=== PATIENT | female | born 1975 | race Caucasian/White ===

== ENCOUNTER → 2022-05-06 09:59 | Outpatient (CLI) | payer OTHER, MEDICAID, SELFPAY ==
[2022-05-06 11:54] LABS: Influenza A - CEPHEID Flu A NEGATIVE (NEGATIVE); Influenza B - CEPHEID Flu B NEGATIVE (NEGATIVE); Respiratory Syncytial Virus Negative (Negative)
[2022-05-06 11:55] LABS: COVID-19 CEPHEID 4-PLEX PCR POSITIVE (Negative)
== END ==
PROVIDERS: PCP Family Medicine; Visit Provider Nurse Practitioner Family
DX: R53.83 Other fatigue (principal)
CPT/HCPCS: 0241U

== ENCOUNTER → 2022-05-06 10:03 | Outpatient (CLI) | payer OTHER, MEDICAID, SELFPAY ==
--- NOTE | 2022-05-06 10:06 | DI.RAD.S_ITS ---
PROCEDURE: XR CHEST 1V INDICATIONS: Chest pain TECHNIQUE: One view of the chest was acquired. COMPARISON: None. FINDINGS: Surgical changes and devices: None. Lungs and pleura: Lungs are clear. No pleural effusions or pneumothorax. Mediastinum: Mediastinal contours appear normal. Heart size is normal. Bones and chest wall: No suspicious bony lesions. Overlying soft tissues appear unremarkable. IMPRESSION: No acute cardiopulmonary abnormalities or focal airspace disease. Dictated by: Kleber Moore M.D. on 05/06/2022 at 18:00 Approved by: Kleber Moore M.D. on 05/06/2022 at 18:00
== END ==
PROVIDERS: PCP Family Medicine; Referring Provider Nurse Practitioner Family; Visit Provider Nurse Practitioner Family
DX: R53.83 Other fatigue; M25.519 Pain in unspecified shoulder; R07.9 Chest pain, unspecified
CPT/HCPCS: 0241U; 71045

== ENCOUNTER 2024-02-18 22:50 | Emergency (ER) | payer SELFPAY ==
[2024-02-18 22:56] VITALS: BP 153/68; PULSE 70; RESP 18; TEMP 36.5; O2SAT 99; BMI 26.5
--- NOTE | 2024-02-18 23:45 | ED.ABDPAIN ---
HPI - Abdominal Pain General Chief Complaint: Abdominal Pain Stated Complaint: rt abd/rib pain, sharp Time Seen by Provider: 02/18/24 23:26 Source: patient Mode of arrival: Ambulatory History of Present Illness HPI narrative: 48-year-old female presents for right-sided upper and lower abdominal pain that began earlier this afternoon. Patient states that it initially felt like ?a Charley horse? on her side, however the longer it remained the more concerned she became. She states that she was never had any pain like this before. Denies nausea, vomiting, constipation, diarrhea, other complaints at this time. No medications taken prior to arrival. Related Data Allergies Allergy/AdvReac Type Severity Reaction Status Date / Time No Known Drug Allergies Allergy Unverified 08/11/23 08:03 Patient History Social History Smoking Status: Never smoker Smoking Status: Never smoker Substance Use Type: does not use Exam Initial Vital Signs Initial Vital Signs: Vital Signs Temperature 97.7 F 02/18/24 22:56 Pulse Rate 70 02/18/24 22:56 Respiratory Rate 18 02/18/24 22:56 Blood Pressure 153/68 H 02/18/24 22:56 Pulse Oximetry 99 02/18/24 22:56 Oxygen Delivery Method Room Air 02/18/24 22:56 Const: Awake, alert, no acute distress, nontoxic appearing Cardiac: regular rate, regular rhythm RESP: unlabored, clear bilaterally, no wheezing GI: Soft, right upper and lower quadrant tenderness to palpation without rebound or guarding Skin: Warm, Dry, intact, no rashes Neuro: AO x3, CN II-XII grossly intact, moves all extremities Course Orders Ordered: Discontinued Medications Ketorolac Tromethamine (Ketorolac 30 Mg/Ml Vial) 15 mg IV NOW ONE Stop: 02/18/24 23:44 Last Admin: 02/18/24 23:48 Dose: 15 mg Documented By: Vital Signs Vital signs: Vital Signs - 8 hr 02/18/24 22:56 Temperature 97.7 F Pulse Rate 70 Respiratory Rate 18 Blood Pressure 153/68 H Pulse Oximetry 99 Oxygen Delivery Method Room Air MDM - Abdominal Pain Differential Diagnosis Differential diagnosis: Likely abdominal pain, acute appendicitis and calculus of kidney Lab Data 02/18/24 23:50 02/18/24 23:50 Labs: Lab Results 02/18/24 Range/Units 23:50 WBC 6.7 (4.5-11.0) X10^3/uL RBC 4.00 (4.0-5.2) X10^6/uL Hgb 10.1 L (12.0-16.0) g/dL Hct 31.2 L (36-46) % MCV 77.9 L (80-100) fL MCH 25.3 L (26-34) PG MCHC 32.5 (30-36) % RDW 17.4 H (11.6-14.8) % Plt Count 294 (150-400) X10^3/uL Neut % (Auto) 80.5 H (50-75) % Lymph % (Auto) 12.9 L (25-40) % [place] % (Auto) 5.5 (3-14) % Eos % (Auto) 0.4 L (2-4) % Baso % (Auto) 0.7 (0-2) % Neut # (Auto) 5400 (4518-4802) /uL Lymph # (Auto) 900 L (0067-9994) /uL [place] # (Auto) 400 (0-900) /uL Eos # (Auto) 0 (0-450) /uL Baso # (Auto) 0 (0-100) /uL Sodium 135 L (137-145) mmol/L Potassium 3.5 (3.4-5.1) mmol/L Chloride 106 (98-107) mmol/L Carbon Dioxide 23 (22-32) mmol/L BUN 9 (7-17) mg/dL Creatinine 0.53 (0.52-1.04) mg/dL Estimated GFR > 60 (>60) mL/min BUN/Creatinine Ratio 17.0 (6-22) Glucose 98 (70-100) mg/dL Lactate 0.6 L (0.7-2.1) mmol/L Calcium 9.6 (8.4-10.2) mg/dL Total Bilirubin 0.5 (0.2-1.3) mg/dL AST 33 (14-36) IU/L ALT 20 (<35) IU/L Alkaline Phosphatase 53 (38-126) U/L Total Protein 7.3 (6.3-8.2) g/dL Albumin 4.4 (3.5-5.0) g/dL Globulin 2.9 (1.7-4.1) g/dL Albumin/Globulin Ratio 1.5 (1.0-2.8) Point of care testing: Point of Care Testing Test Results Negative Urine Dip Bedside Urine Glucose Negative Bedside Urine Bilirubin - Negative Bedside Urine Ketone - Negative Urine Specific [place] 1.005 Bedside Urine Occult Blood - Negative Bedside Urine pH 6.0 Bedside Urine Protein - Negative Bedside Urine Urobilinogen - Negative Bedside Urine Nitrite - Negative Bedside Urine Leukocytes - Negative Esterase Imaging Data CT scan - abdomen/pelvis: Radiologist's Impression: PROCEDURE: CT ABDOMEN PELVIS W CON INDICATIONS: RLQ abd pain TECHNIQUE: After the administration of intravenous contrast, axial sections acquired from the lung bases to the pubic symphysis. Coronal and sagittal reformats were performed. For radiation dose reduction, the following was used: automated exposure control, adjustment of mA and/or kV according to patient size. COMPARISON: None. FINDINGS: Image quality: Diagnostic. Lower Chest: No significant findings. ABDOMEN: Liver: No solid mass. Liver is mildly enlarged, measuring up to 19.5 cm in craniocaudal dimension. Gallbladder: No radiopaque gallstones or wall thickening. Biliary ducts: No biliary dilation. Pancreas: No ductal dilation. Spleen: Size is within normal limits. Adrenal Glands: No adrenal nodules. Kidneys and Ureters: No hydronephrosis. No solid mass. No complex renal cystic lesion which requires follow up. Stomach and Bowel: Visualized portions of the appendix appear normal. Small bowel loops and stomach are unremarkable. Peritoneum: No abnormal intraperitoneal fluid. No free air. Ventral Wall: Small fat containing periumbilical hernia. Abdominal Nodes: No retroperitoneal or mesenteric adenopathy by size criteria. Vessels: Aorta and inferior vena cava are normal in size. PELVIS: Pelvic Organs: Reflux of contrast material is seen into the gonadal veins, which can be seen in setting of pelvic congestion syndrome. Mildly prominent endometrial stripe measures up to 11 mm in thickness, likely physiologic. Bladder: No bladder wall thickening, accounting for underdistention. Pelvic Nodes: No enlarged lymph nodes. Miscellaneous: No inguinal hernias are seen. Bones: No aggressive osseous abnormality. Mild degenerative changes in the lower lumbar spine. IMPRESSION: 1. No acute abnormality identified in the abdomen or pelvis. Normal appendix. 2. Hepatomegaly. 3. Reflux of contrast material into the gonadal veins is nonspecific but can be seen with pelvic congestion syndrome. Approved by: Mau Rendon M.D. on 02/19/2024 at 0:39 MDM Narrative Medical decision making narrative: Well-appearing patient with right-sided upper and lower abdominal pain. Abdomen is soft, she does have reproducible tenderness on the right-hand side. Laboratory work negative for acute findings. CT imaging negative for acute findings. Mild hepatomegaly noted. Patient informed of all lab and imaging findings. Recommended Tylenol and ibuprofen as needed for symptoms. PCP follow up advised. Discharge Plan Departure Patient Disposition: Home Clinical Impression: Right sided abdominal pain Instructions: DI for Abdominal Pain-Adult Activity Restrictions/Additional Instructions: Your laboratory work today showed very mild anemia, however it was otherwise normal. Your CT showed a slightly large liver, but no blockage or infection. Take Tylenol and ibuprofen at home for pain as needed. Please make sure that you follow up with a primary care doctor. Referrals: Nubia Hayes ARNP [Primary Care Provider] - Stand Alone Forms: Patient Portal/API/Survey
[2024-02-18] MEDS: KETOROLAC 30 MG/ML VIAL 15 MG IV (23:48)
[2024-02-18 23:57] LABS: Add Manual Diff / Slide Review NO; Basophils Absolute Auto 0 /uL (0-100); Basophils Percent Auto 0.7 % (0-2); Eosinophils Absolute Auto 0 /uL (0-450); Eosinophils Percent Auto 0.4 % (2-4); Hematocrit 31.2 % (36-46); Hemoglobin 10.1 g/dL (12.0-16.0); Lymphocytes Absolute Auto 900 /uL (1100-4500); Lymphocytes Percent Auto 12.9 % (25-40); Mean Corpuscular HGB Conc 32.5 % (30-36); Mean Corpuscular Hemoglobin 25.3 PG (26-34); Mean Corpuscular Volume 77.9 fL (80-100); Monocytes Absolute Auto 400 /uL (0-900); Monocytes Percent Auto 5.5 % (3-14); Neutrophils Absolute Auto 5400 /uL (1500-7000); Neutrophils Percent Auto 80.5 % (50-75); Platelet Count 294 X10^3/uL (150-400); Red Cell Distribution Width 17.4 % (11.6-14.8); White Blood Cell Count 6.7 X10^3/uL (4.5-11.0)
[2024-02-19 00:08] LABS: Alanine Aminotransferase 20 IU/L (<35); Albumin 4.4 g/dL (3.5-5.0); Albumin Globulin Ratio 1.5 (1.0-2.8); Alkaline Phosphatase 53 U/L (38-126); Aspartate Aminotransferase 33 IU/L (14-36); Bilirubin Total 0.5 mg/dL (0.2-1.3); Blood Urea Nitrogen 9 mg/dL (7-17); Calcium 9.6 mg/dL (8.4-10.2); Carbon Dioxide 23 mmol/L (22-32); Chloride 106 mmol/L (98-107); Estimated Glomerular Filt Rate > 60 mL/min (>60); Globulin 2.9 g/dL (1.7-4.1); Glucose 98 mg/dL (70-100); HEMOLYSIS < 15 (0-50); Potassium 3.5 mmol/L (3.4-5.1); Sodium 135 mmol/L (137-145); Total Protein 7.3 g/dL (6.3-8.2)
[2024-02-19 00:09] LABS: Lactate (Lactic Acid) 0.6 mmol/L (0.7-2.1)
[2024-02-19 00:54] VITALS: BP 130/62; PULSE 60; RESP 18; O2SAT 98
== END 2024-02-19 01:01 | disposition home or self-care (01) ==
PROVIDERS: Emergency Provider Emergency Medicine; PCP Nurse Practitioner
DX: R10.11 Right upper quadrant pain (principal); R10.31 Right lower quadrant pain
CPT/HCPCS: 36415; 74177; 80053; 81003; 81025; 83605; 85025; 96374; 99284; J1885; Q9967

== ENCOUNTER 2024-07-21 11:29 | Emergency (ER) | payer SELFPAY ==
[2024-07-21] VITALS (11 sets, daily range): BP systolic 127–147; BP diastolic 58–81; PULSE 59–74; RESP 16–23; TEMP 36.6–36.8; O2SAT 92–100; BMI 28.3
--- NOTE | 2024-07-21 11:48 | ED.GENADULT ---
HPI - General Adult General Chief complaint: Dizziness Stated complaint: Dizzy, vomiting , head pressure , blurred vision Time Seen by Provider: 07/21/24 11:48 Source: patient Mode of arrival: Ambulatory History of Present Illness HPI narrative: 41-year-old female presenting for multiple complaints. She states that since Friday, proximally week ago she has been having intermittent dizziness, hot flashes, nausea and vomiting, headache, states that these symptoms have been ongoing and persistent therefore did have a balance test done on at [facility] in [facility] which she states was normal. But due to persistent dizziness was instructed come into the ED. she states that she did have a remote history of Lyme disease in 2019 in which she was treated with doxycycline and is wondering/worried that this might be the case again. She denies any chest pain shortness breath fever chills abdominal pain or any other GI/ symptoms at this time Related Data Previous Rx's Medication Instructions Recorded meclizine 25 mg tablet 25 mg PO DAILY PRN dizziness or 07/21/24 vertigo 1 week #7 tabs ondansetron 4 mg disintegrating 4 mg PO Q8H PRN nausea and 07/21/24 tablet vomiting 5 days #15 tabs prednisone 20 mg tablet 20 mg PO DAILY 5 days #5 tabs 07/21/24 Allergies Allergy/AdvReac Type Severity Reaction Status Date / Time No Known Drug Allergies Allergy Unverified 08/11/23 08:03 Review of Systems Review of Systems Narrative: General: Denies fever, chills, weight loss HEENT: Positive headache, eye drainage, eye irritation, head trauma, sore throat, voice change Cardiovascular: Denies any chest pain, palpitations, tachycardia Respiratory: Denies any shortness of breath, cough, wheeze, stridor GI/: Positive nausea and vomiting Denies any abdominal pain, diarrhea, bright red blood per rectum, melanotic stools, urinary frequency, urinary retention, dysuria, hematuria MSK: Denies any joint pain, muscle pains, swelling Skin: Denies any rashes, lesions, discoloration Neuro: Positive lightheadedness, dizziness Denies any headache, fainting, weakness Psych: Denies SI/HI Patient History Social History Smoking Status: Never smoker Smoking Status: Never smoker Exam Narrative Exam Narrative: General: Cooperative, well-developed, not in acute distress HEENT: Normocephalic, atraumatic, PERRLA, normal sclera, eyelids normal Neck: Active full range of motion, atraumatic Chest: Normal to inspection, negative crepitus, no overlying erythema ecchymosis Respiratory: Normal respiratory effort, not in acute respiratory distress, clear to auscultation bilaterally negative cough, wheeze, tachypnea, rhonchi, rales Cardiology: Regular rate rhythm negative gallop, murmur, rubs GI/: No tenderness to palpation, soft, non rigid, normal to inspection, exam deferred MSK: Full active range of motion in all 4 extremities, atraumatic, no tenderness to palpation of any bony prominences Skin: No rashes or lesions noted Neuro: NIH of 0, no focal deficits Alert awake oriented x3, moves all 4 extremities spontaneously, cranial nerves intact, able to answer all questions appropriately follows commands appropriately Psych: Cooperative, negative suicidal or homicidal ideations Initial Vital Signs Initial Vital Signs: Vital Signs Temperature 98.2 F 07/21/24 11:37 Pulse Rate 74 07/21/24 11:37 Respiratory Rate 16 07/21/24 11:37 Blood Pressure 141/67 H 07/21/24 11:37 Pulse Oximetry 100 07/21/24 11:37 Oxygen Delivery Method Room Air 07/21/24 11:37 Course Orders Ordered: ED Orders 07/21/24 12:00 Complete Blood Count AUTO DIFF Stat Comprehensive Metabolic Panel Stat MAG [Magnesium] Stat Troponin I Stat 07/21/24 12:02 CT head/brain wo con Stat XR chest 1V Stat EKG-12 Lead Stat 07/21/24 12:03 CT angio head and neck Stat 07/21/24 12:28 Covid-19 + FLU A/B + RSV - PCR Stat Discontinued Medications Dexamethasone (Dexamethasone 10 Mg/Ml Vial) 10 mg IV NOW ONE Stop: 07/21/24 12:04 Last Admin: 07/21/24 12:14 Dose: 10 mg Documented By: NITZA Diphenhydramine HCl (Diphenhydramine 50 Mg/Ml Vial) 25 mg IV NOW ONE Stop: 07/21/24 12:02 Last Admin: 07/21/24 12:14 Dose: 25 mg Documented By: NITZA Sodium Chloride (Normal Saline 0.9%) 1,000 mls @ 1,000 mls/hr IV BOLUS ONE Stop: 07/21/24 13:00 Last Admin: 07/21/24 12:13 Dose: 1,000 mls/hr Documented By: NITZA Metoclopramide HCl (Metoclopramide 10 Mg/2 Ml Inj) 10 mg IV NOW ONE Stop: 07/21/24 12:04 Last Admin: 07/21/24 12:14 Dose: 10 mg Documented By: NITZA Vital Signs Vital signs: Vital Signs - 8 hr 07/21/24 11:37 07/21/24 11:49 07/21/24 11:50 Temperature 98.2 F Pulse Rate 74 66 Respiratory Rate 16 Blood Pressure 141/67 H Pulse Oximetry 100 95 100 Oxygen Delivery Method Room Air 07/21/24 11:50 07/21/24 12:00 07/21/24 12:01 Temperature Pulse Rate 73 73 Respiratory Rate 20 Blood Pressure 134/64 Pulse Oximetry 100 100 Oxygen Delivery Method 07/21/24 12:01 07/21/24 12:30 07/21/24 12:32 Temperature Pulse Rate 63 66 Respiratory Rate 23 Blood Pressure 147/81 H Pulse Oximetry 100 100 Oxygen Delivery Method 07/21/24 12:32 07/21/24 13:02 07/21/24 13:04 Temperature Pulse Rate 60 59 L Respiratory Rate 22 Blood Pressure 139/58 L Pulse Oximetry 92 100 Oxygen Delivery Method 07/21/24 13:04 Temperature Pulse Rate Respiratory Rate Blood Pressure 130/58 L Pulse Oximetry Oxygen Delivery Method Medical Decision Making Differential Diagnosis Differential Diagnosis: Intracranial hemorrhage, CVA, ACS, electrolyte abnormality, pneumonia Lab Data 07/21/24 12:00 07/21/24 12:00 Labs: Lab Results 07/21/24 07/21/24 07/21/24 Range/Units 12:00 12:00 12:00 WBC 6.5 (4.5-11.0) X10^3/uL RBC 4.32 (4.0-5.2) X10^6/uL Hgb 11.3 L (12.0-16.0) g/dL Hct 34.8 L (36-46) % MCV 80.5 (80-100) fL MCH 26.2 (26-34) PG MCHC 32.6 (30-36) % RDW 16.3 H (11.6-14.8) % Plt Count 297 (150-400) X10^3/uL Neut % (Auto) 76.4 H (50-75) % Lymph % (Auto) 18.1 L (25-40) % [place] % (Auto) 4.4 (3-14) % Eos % (Auto) 0.5 L (2-4) % Baso % (Auto) 0.6 (0-2) % Neut # (Auto) 5000 (4171-1225) /uL Lymph # (Auto) 1200 (3447-6438) /uL [place] # (Auto) 300 (0-900) /uL Eos # (Auto) 0 (0-450) /uL Baso # (Auto) 0 (0-100) /uL Sodium 138 Cancelled (137-145) mmol/L Potassium 3.9 Cancelled (3.4-5.1) mmol/L Chloride 106 (98-107) mmol/L Carbon Dioxide (22-32) mmol/L BUN (7-17) mg/dL Creatinine (0.52-1.04) mg/dL Estimated GFR (>60) mL/min BUN/Creatinine Ratio (6-22) Glucose (70-100) mg/dL Calcium (8.4-10.2) mg/dL Magnesium (1.6-2.3) mg/dL Total Bilirubin (0.2-1.3) mg/dL AST (14-36) IU/L ALT (<35) IU/L Alkaline Phosphatase (38-126) U/L Troponin I (0.01-0.034) ng/mL Total Protein (6.3-8.2) g/dL Albumin (3.5-5.0) g/dL Globulin (1.7-4.1) g/dL Albumin/Globulin Ratio (1.0-2.8) SARS-CoV-2 (PCR) (Negative) Influenza A (RT-PCR) (NEGATIVE) Influenza B (RT-PCR) (NEGATIVE) RSV (PCR) (Negative) 07/21/24 07/21/24 07/21/24 Range/Units 12:00 12:00 12:00 WBC (4.5-11.0) X10^3/uL RBC (4.0-5.2) X10^6/uL Hgb (12.0-16.0) g/dL Hct (36-46) % MCV (80-100) fL MCH (26-34) PG MCHC (30-36) % RDW (11.6-14.8) % Plt Count (150-400) X10^3/uL Neut % (Auto) (50-75) % Lymph % (Auto) (25-40) % [place] % (Auto) (3-14) % Eos % (Auto) (2-4) % Baso % (Auto) (0-2) % Neut # (Auto) (9353-1956) /uL Lymph # (Auto) (8078-1737) /uL [place] # (Auto) (0-900) /uL Eos # (Auto) (0-450) /uL Baso # (Auto) (0-100) /uL Sodium (137-145) mmol/L Potassium (3.4-5.1) mmol/L Chloride Cancelled (98-107) mmol/L Carbon Dioxide 25 Cancelled (22-32) mmol/L BUN 11 Cancelled (7-17) mg/dL Creatinine 0.55 (0.52-1.04) mg/dL Estimated GFR (>60) mL/min BUN/Creatinine Ratio (6-22) Glucose (70-100) mg/dL Calcium (8.4-10.2) mg/dL Magnesium (1.6-2.3) mg/dL Total Bilirubin (0.2-1.3) mg/dL AST (14-36) IU/L ALT (<35) IU/L Alkaline Phosphatase (38-126) U/L Troponin I (0.01-0.034) ng/mL Total Protein (6.3-8.2) g/dL Albumin (3.5-5.0) g/dL Globulin (1.7-4.1) g/dL Albumin/Globulin Ratio (1.0-2.8) SARS-CoV-2 (PCR) (Negative) Influenza A (RT-PCR) (NEGATIVE) Influenza B (RT-PCR) (NEGATIVE) RSV (PCR) (Negative) 07/21/24 07/21/24 07/21/24 Range/Units 12:00 12:00 12:00 WBC (4.5-11.0) X10^3/uL RBC (4.0-5.2) X10^6/uL Hgb (12.0-16.0) g/dL Hct (36-46) % MCV (80-100) fL MCH (26-34) PG MCHC (30-36) % RDW (11.6-14.8) % Plt Count (150-400) X10^3/uL Neut % (Auto) (50-75) % Lymph % (Auto) (25-40) % [place] % (Auto) (3-14) % Eos % (Auto) (2-4) % Baso % (Auto) (0-2) % Neut # (Auto) (5333-7807) /uL Lymph # (Auto) (1556-9634) /uL [place] # (Auto) (0-900) /uL Eos # (Auto) (0-450) /uL Baso # (Auto) (0-100) /uL Sodium (137-145) mmol/L Potassium (3.4-5.1) mmol/L Chloride (98-107) mmol/L Carbon Dioxide (22-32) mmol/L BUN (7-17) mg/dL Creatinine Cancelled (0.52-1.04) mg/dL Estimated GFR > 60 Cancelled (>60) mL/min BUN/Creatinine Ratio 20.0 Cancelled (6-22) Glucose 103 H (70-100) mg/dL Calcium (8.4-10.2) mg/dL Magnesium (1.6-2.3) mg/dL Total Bilirubin (0.2-1.3) mg/dL AST (14-36) IU/L ALT (<35) IU/L Alkaline Phosphatase (38-126) U/L Troponin I (0.01-0.034) ng/mL Total Protein (6.3-8.2) g/dL Albumin (3.5-5.0) g/dL Globulin (1.7-4.1) g/dL Albumin/Globulin Ratio (1.0-2.8) SARS-CoV-2 (PCR) (Negative) Influenza A (RT-PCR) (NEGATIVE) Influenza B (RT-PCR) (NEGATIVE) RSV (PCR) (Negative) 07/21/24 07/21/24 07/21/24 Range/Units 12:00 12:00 12:28 WBC (4.5-11.0) X10^3/uL RBC (4.0-5.2) X10^6/uL Hgb (12.0-16.0) g/dL Hct (36-46) % MCV (80-100) fL MCH (26-34) PG MCHC (30-36) % RDW (11.6-14.8) % Plt Count (150-400) X10^3/uL Neut % (Auto) (50-75) % Lymph % (Auto) (25-40) % [place] % (Auto) (3-14) % Eos % (Auto) (2-4) % Baso % (Auto) (0-2) % Neut # (Auto) (1681-1272) /uL Lymph # (Auto) (0550-0855) /uL [place] # (Auto) (0-900) /uL Eos # (Auto) (0-450) /uL Baso # (Auto) (0-100) /uL Sodium (137-145) mmol/L Potassium (3.4-5.1) mmol/L Chloride (98-107) mmol/L Carbon Dioxide (22-32) mmol/L BUN (7-17) mg/dL Creatinine (0.52-1.04) mg/dL Estimated GFR (>60) mL/min BUN/Creatinine Ratio (6-22) Glucose Cancelled (70-100) mg/dL Calcium 9.7 Cancelled (8.4-10.2) mg/dL Magnesium 2.1 (1.6-2.3) mg/dL Total Bilirubin 0.4 (0.2-1.3) mg/dL AST 25 (14-36) IU/L ALT 18 (<35) IU/L Alkaline Phosphatase 68 (38-126) U/L Troponin I < 0.012 (0.01-0.034) ng/mL Total Protein 7.7 (6.3-8.2) g/dL Albumin 5.0 (3.5-5.0) g/dL Globulin 2.7 (1.7-4.1) g/dL Albumin/Globulin Ratio 1.9 (1.0-2.8) SARS-CoV-2 (PCR) Negative (Negative) Influenza A (RT-PCR) Flu a negative (NEGATIVE) Influenza B (RT-PCR) Flu b negative (NEGATIVE) RSV (PCR) Negative (Negative) Point of Care Testing Test Results Negative Urine Dip Bedside Urine Glucose Negative Bedside Urine Bilirubin - Negative Bedside Urine Ketone - Negative Urine Specific [place] 1.005 Bedside Urine Occult Blood - Negative Bedside Urine pH 7.5 Bedside Urine Protein - Negative Bedside Urine Urobilinogen - Negative Bedside Urine Nitrite - Negative Bedside Urine Leukocytes - Negative Esterase Point of care testing: Point of Care Testing Test Results Negative Urine Dip Bedside Urine Glucose Negative Bedside Urine Bilirubin - Negative Bedside Urine Ketone - Negative Urine Specific [place] 1.005 Bedside Urine Occult Blood - Negative Bedside Urine pH 7.5 Bedside Urine Protein - Negative Bedside Urine Urobilinogen - Negative Bedside Urine Nitrite - Negative Bedside Urine Leukocytes - Negative Esterase Imaging Data Chest x-ray: Radiologist's Impression: [address] [address] XRay Report Signed Patient: Nina Jones MR#: [id number] : 1975 Acct:[id number] Age/Sex: 49 / F Date of Service: 07/21/24 Loc: ED Accession Number: [id number] Procedure: XR chest 1V Ordering Provider: Michael Vora D.O. PROCEDURE: XR CHEST 1V INDICATIONS: light headed, dizzy TECHNIQUE: One view of the chest was acquired. COMPARISON: [facility], , XR CHEST 1V, 05/06/2022, 10:15. FINDINGS: Surgical changes and devices: None. Lungs and pleura: Lungs are clear. No pleural effusions or pneumothorax. Mediastinum: Mediastinal contours appear normal. Heart size is normal. Bones and chest wall: No suspicious bony lesions. Overlying soft tissues appear unremarkable. IMPRESSION: No acute pulmonary process. CT scan - head: Radiologist's Impression: [address] [address] [address] Scan Report Signed Patient: Nina Jones MR#: [id number] : 1975 Acct:[id number] Age/Sex: 49 / F Date of Service: 07/21/24 Loc: ED Accession Number: [id number] Procedure: CT head/brain wo con Ordering Provider: Michael Vora D.O. PROCEDURE: CT HEAD/BRAIN WO CON INDICATIONS: light headed/dizzy TECHNIQUE: Noncontrast 4.5 mm thick angled axial sections acquired from the foramen magnum to the vertex, with coronal and sagittal reformats. For radiation dose reduction, the following was used: automated exposure control, adjustment of mA and/or kV according to patient size. COMPARISON: None. FINDINGS: Image quality: Diagnostic. CSF spaces: Basal cisterns are patent. No extra-axial fluid collections. Ventricles are normal in size and shape. Brain: No midline shift. No intracranial masses or hemorrhage. Cta-white matter interface is normal. Skull and face: Calvarium and visualized facial bones are intact, without suspicious lesions. Sinuses: Visualized sinuses and mastoids are clear. IMPRESSION: No acute intracranial pathology. CTA - brain/neck: Radiologist's Impression: [place] [address] CT Scan Report Signed Patient: Nina Jones MR#: [id number] : 1975 Acct:[id number] Age/Sex: 49 / F Date of Service: 07/21/24 Loc: ED Accession Number: [id number] Procedure: CT angio head and neck Ordering Provider: Michael Vora D.O. PROCEDURE: CT ANGIO HEAD AND NECK INDICATIONS: light headed / dizzy TECHNIQUE: After the administration of intravenous contrast, 1 mm thick sections acquired from the aortic arch through the [place] of [place]. 3-dimensional bfdvmod-gyladblgc-liixhqftmm (MIP) and/or volume rendering reformats were acquired of the central intracranial vasculature and neck separately. For radiation dose reduction, the following was used: automated exposure control, adjustment of mA and/or kV according to patient size. COMPARISON: [facility], CT, CT HEAD/BRAIN WO CON, 07/21/2024, 12:45. FINDINGS: Image quality: Diagnostic. BRAIN: See separately dictated CT head report of 07/21/2024. HEAD CT ANGIOGRAPHY: Anterior circulation: Intracranial internal carotid arteries are normal in size and flow. The flow within the paired anterior cerebral arteries is normal and symmetric. The flow within the middle cerebral arteries is normal and symmetric. The anterior communicating artery is seen. No aneurysms are seen. Posterior circulation: Visualized portions of the vertebral arteries demonstrate normal caliber, and join to form a normal appearing basilar artery. Flow within the posterior cerebral arteries is normal and symmetric. No aneurysms are seen. NECK CT ANGIOGRAPHY: Carotid system: The great vessels demonstrate a conventional anatomy as they arise from the aortic arch. The origins of the common carotid arteries appear patent. The common carotid arteries demonstrate normal caliber and courses. The bifurcation regions are both widely patent. The internal carotid arteries demonstrate normal calibers and courses. Posterior circulation: The origins of the vertebral arteries both appear widely patent. The more superior extracranial portions of both vertebral arteries also demonstrate normal courses and calibers. They join to form a normal appearing basilar artery. Soft tissues: Visualized neck soft tissues demonstrate no suspicious abnormalities. Bones: No suspicious bony lesions. Visualized cervical spine appears normally aligned. IMPRESSION: No significant intracranial arterial abnormality is seen. No significant abnormality is seen within the arteries of the neck. MDM Narrative Medical decision making narrative: 49-year-old female presenting for multiple complaints. Stating that she has been having worsening headache, lightheadedness, dizziness, nausea and vomiting and decreased hearing loss. She states that her symptoms have always been constant since 2019 when she was diagnosed Lyme disease. She states that she was treated with doxycycline for this, she states that her symptoms are worse with motion. She states that last week she did go to a hearing and balance expert and was told today that her results were completely normal but due to persistent since symptoms was instructed come into the ED for further evaluation treatment. Patient stating no recent travel, no known exposure to ticks. No rashes. On exam patient without any focal deficits NIH of 0. Patient had lab work EKG and imaging performed here in the emergency department. Lab work without any acute abnormalities, troponin negative, respiratory panel negative, CT head without any acute intracranial abnormalities, CTA angio head and neck without any acute intracranial abnormalities, chest x-ray without any acute cardiopulmonary abnormalities. Patient was given Reglan Benadryl Decadron for her symptoms, she states that she had improved symptoms after administration of these medications here. Patient will be discharged home with Zofran, prednisone, meclizine for symptomatic relief. Patient was instructed to follow up with her primary care doctor and her ENT in an outpatient setting she verbalized understanding of this and agrees to being discharged home with outpatient follow up Discharge Plan Departure Patient Disposition: Home Clinical Impression: Dizziness Instructions: DI for Vertigo Activity Restrictions/Additional Instructions: Please follow up with your primary care doctor Please read the discharge instructions sheet carefully and bring all papers to all doctor follow-up visits, as it may contain information that your doctor may want to see. Disease processes change and evolve, if your symptoms worsen or if you develop any new symptoms that are concerning to you please return for evaluation. Your evaluation today does not show any evidence of any life-threatening/serious illnesses requiring admission to the hospital or surgery. Please follow-up with your doctor for re-evaluation in approximately 1 day. Seek immediate medical attention for any worrisome symptoms. *If you do not have a primary care provider please contact the [facility] Resource line at [phone]. They will ask some questions about your medical history and help get you set up with a doctor in the community. Prescriptions: New prednisone 20 mg tablet 20 mg PO DAILY 5 Days Qty: 5 0RF ondansetron 4 mg tablet,disintegrating 4 mg PO Q8H PRN (Reason: nausea and vomiting) 5 Days Qty: 15 0RF meclizine 25 mg tablet 25 mg PO DAILY PRN (Reason: dizziness or vertigo) 7 Days Qty: 7 0RF Referrals: Nubia Hayes ARNP [Primary Care Provider] - Stand Alone Forms: Patient Portal/API/Survey
--- NOTE | 2024-07-21 12:02 | DI.CT.S_ITS ---
PROCEDURE: CT HEAD/BRAIN WO CON INDICATIONS: light headed/dizzy TECHNIQUE: Noncontrast 4.5 mm thick angled axial sections acquired from the foramen magnum to the vertex, with coronal and sagittal reformats. For radiation dose reduction, the following was used: automated exposure control, adjustment of mA and/or kV according to patient size. COMPARISON: None. FINDINGS: Image quality: Diagnostic. CSF spaces: Basal cisterns are patent. No extra-axial fluid collections. Ventricles are normal in size and shape. Brain: No midline shift. No intracranial masses or hemorrhage. Cat-white matter interface is normal. Skull and face: Calvarium and visualized facial bones are intact, without suspicious lesions. Sinuses: Visualized sinuses and mastoids are clear. IMPRESSION: No acute intracranial pathology. Dictated by: Myrna Puckett M.D. on 07/21/2024 at 12:51 Approved by: Myrna Puckett M.D. on 07/21/2024 at 12:52
--- NOTE | 2024-07-21 12:02 | DI.RAD.S_ITS ---
PROCEDURE: XR CHEST 1V INDICATIONS: light headed, dizzy TECHNIQUE: One view of the chest was acquired. COMPARISON: M[facility]ed [facility], CR, XR CHEST 1V, 05/06/2022, 10:15. FINDINGS: Surgical changes and devices: None. Lungs and pleura: Lungs are clear. No pleural effusions or pneumothorax. Mediastinum: Mediastinal contours appear normal. Heart size is normal. Bones and chest wall: No suspicious bony lesions. Overlying soft tissues appear unremarkable. IMPRESSION: No acute pulmonary process. Dictated by: Myrna Puckett M.D. on 07/21/2024 at 12:22 Approved by: Myrna Puckett M.D. on 07/21/2024 at 12:22
--- NOTE | 2024-07-21 12:02 | EKG_ITS ---
[address] [address] Test Date: 2024-07-21 Pat Name: Nina Jones Department: 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
--- NOTE | 2024-07-21 12:03 | DI.CT.S_ITS ---
PROCEDURE: CT ANGIO HEAD AND NECK INDICATIONS: light headed / dizzy TECHNIQUE: After the administration of intravenous contrast, 1 mm thick sections acquired from the aortic arch through the [place] of [place]. 3-dimensional dsbrsdp-vvvpqejmy-ujzblymkel (MIP) and/or volume rendering reformats were acquired of the central intracranial vasculature and neck separately. For radiation dose reduction, the following was used: automated exposure control, adjustment of mA and/or kV according to patient size. COMPARISON: [facility], CT, CT HEAD/BRAIN WO [facility], 07/21/2024, 12:45. FINDINGS: Image quality: Diagnostic. BRAIN: See separately dictated CT head report of 07/21/2024. HEAD CT ANGIOGRAPHY: Anterior circulation: Intracranial internal carotid arteries are normal in size and flow. The flow within the paired anterior cerebral arteries is normal and symmetric. The flow within the middle cerebral arteries is normal and symmetric. The anterior communicating artery is seen. No aneurysms are seen. Posterior circulation: Visualized portions of the vertebral arteries demonstrate normal caliber, and join to form a normal appearing basilar artery. Flow within the posterior cerebral arteries is normal and symmetric. No aneurysms are seen. NECK CT ANGIOGRAPHY: Carotid system: The great vessels demonstrate a conventional anatomy as they arise from the aortic arch. The origins of the common carotid arteries appear patent. The common carotid arteries demonstrate normal caliber and courses. The bifurcation regions are both widely patent. The internal carotid arteries demonstrate normal calibers and courses. Posterior circulation: The origins of the vertebral arteries both appear widely patent. The more superior extracranial portions of both vertebral arteries also demonstrate normal courses and calibers. They join to form a normal appearing basilar artery. Soft tissues: Visualized neck soft tissues demonstrate no suspicious abnormalities. Bones: No suspicious bony lesions. Visualized cervical spine appears normally aligned. IMPRESSION: No significant intracranial arterial abnormality is seen. No significant abnormality is seen within the arteries of the neck. Any quantitative measurements of stenosis were performed using NASCET criteria. Dictated by: Myrna Puckett M.D. on 07/21/2024 at 13:02 Approved by: Myrna Puckett M.D. on 07/21/2024 at 13:25
[2024-07-21] MEDS: SODIUM CHLORIDE 0.9% 1,000 ML 1000 ML IV (12:13)
[2024-07-21] MEDS: METOCLOPRAMIDE 10 MG/2 ML INJ IV (12:14)
[2024-07-21] MEDS: DEXAMETHASONE 10 MG/ML VIAL IV (12:14)
[2024-07-21] MEDS: diphenhydrAMINE 50 MG/ML VIAL 25 MG IV (12:14)
[2024-07-21 12:19] LABS: Add Manual Diff / Slide Review NO; Basophils Absolute Auto 0 /uL (0-100); Basophils Percent Auto 0.6 % (0-2); Eosinophils Absolute Auto 0 /uL (0-450); Eosinophils Percent Auto 0.5 % (2-4); Hematocrit 34.8 % (36-46); Hemoglobin 11.3 g/dL (12.0-16.0); Lymphocytes Absolute Auto 1200 /uL (1100-4500); Lymphocytes Percent Auto 18.1 % (25-40); Mean Corpuscular HGB Conc 32.6 % (30-36); Mean Corpuscular Hemoglobin 26.2 PG (26-34); Mean Corpuscular Volume 80.5 fL (80-100); Monocytes Absolute Auto 300 /uL (0-900); Monocytes Percent Auto 4.4 % (3-14); Neutrophils Absolute Auto 5000 /uL (1500-7000); Neutrophils Percent Auto 76.4 % (50-75); Platelet Count 297 X10^3/uL (150-400); Red Blood Cell Count 4.32 X10^6/uL (4.0-5.2); Red Cell Distribution Width 16.3 % (11.6-14.8); White Blood Cell Count 6.5 X10^3/uL (4.5-11.0)
[2024-07-21 12:32] LABS: Alanine Aminotransferase 18 IU/L (<35); Albumin Globulin Ratio 1.9 (1.0-2.8); Alkaline Phosphatase 68 U/L (38-126); Aspartate Aminotransferase 25 IU/L (14-36); Bilirubin Total 0.4 mg/dL (0.2-1.3); Blood Urea Nitrogen 11 mg/dL (7-17); Calcium 9.7 mg/dL (8.4-10.2); Carbon Dioxide 25 mmol/L (22-32); Chloride 106 mmol/L (98-107); Estimated Glomerular Filt Rate > 60 mL/min (>60); Globulin 2.7 g/dL (1.7-4.1); Glucose 103 mg/dL (70-100); HEMOLYSIS < 15 (0-50); Potassium 3.9 mmol/L (3.4-5.1); Sodium 138 mmol/L (137-145); Total Protein 7.7 g/dL (6.3-8.2)
[2024-07-21 12:33] LABS: Magnesium 2.1 mg/dL (1.6-2.3)
[2024-07-21 12:44] LABS: Troponin I < 0.012 ng/mL (0.01-0.034)
[2024-07-21 13:10] LABS: Influenza A - CEPHEID Flu A NEGATIVE (NEGATIVE); Influenza B - CEPHEID Flu B NEGATIVE (NEGATIVE); Respiratory Syncytial Virus Negative (Negative)
[2024-07-21 13:11] LABS: COVID-19 CEPHEID 4-PLEX PCR Negative (Negative)
== END 2024-07-21 14:00 | disposition home or self-care (01) ==
PROVIDERS: Emergency Provider Student in an Organized Health Care Education/Training Program; PCP Nurse Practitioner
DX: R42 Dizziness and giddiness (principal); R11.2 Nausea with vomiting, unspecified; R51.9 Headache, unspecified; H91.90 Unspecified hearing loss, unspecified ear; R29.700 NIHSS score 0
CPT/HCPCS: 0241U; 36415; 70450; 70496; 70498; 71045; 80053; 81003; 81025; 83735; 84484; 85025; 93005; 96361; 96374; 96375; 99284; J1100; J1200; J2765; Q9967